=== PATIENT | male | born 1995 | race Caucasian/White ===

== ENCOUNTER 2022-01-28 20:58 | Emergency (ER) | payer MEDICAID ==
[~2022-01-28] VITALS: Ht 175.3 cm; Wt 73.0 kg
[2022-01-28 21:09] VITALS: BP 128/72
[2022-01-28 23:13] LABS: CHLORIDE 101 mEq/L (98-107)
[2022-01-28 23:30] LABS: HEMATOCRIT. 44.3 % (42.0-52.0); HEMOGLOBIN. 15.2 g/dL (14.0-18.0); MEAN CORPUSCULAR HEMOGLOBIN 29.9 pg (28.0-32.0); MEAN CORPUSCULAR VOLUME 87.5 fL (80.0-94.0); MEAN PLATELET VOLUME 7.8 fl (7.4-10.4); PLATELET 209 x1000/uL (130-400); RED BLOOD CELL COUNT 5.06 mill/uL (4.7-6.1); RED CELL DISTRIBUTION WIDTH 12.8 % (11.6-14.6)
[2022-01-29 01:23] LABS: PLATELET ESTIMATE NORMAL
== END 2022-01-29 00:23 | disposition home or self-care (01) ==
LOC: ER 20:58
DX: R55 Syncope and collapse (principal); Z20.822 Contact with and (suspected) exposure to COVID-19
CPT/HCPCS: 36415; 71045; 80048; 84484; 85025; 87426; 93005; 99285